=== PATIENT | male | born 1990 | race Caucasian/White ===

== ENCOUNTER 2021-12-22 13:19 | Outpatient (REF) | payer OTHER, SELFPAY ==
--- NOTE | ~2021-12-22 | XR_ITS ---
EXAMINATION: XR FOOT, RIGHT CLINICAL INFORMATION: Pain COMPARISON: None TECHNIQUE: AP, lateral, and oblique views of the right foot. FINDINGS: The bones and soft tissues are normal. No fracture. Alignment is anatomic. Joint spaces are maintained. XR/XR foot RT min 3V IMPRESSION: Normal right foot.
== END 2021-12-22 13:20 | disposition home or self-care (01) ==
LOC: HO.HMGCX 13:19
PROVIDERS: PCP Internal Medicine
DX: M79.671 Pain in right foot (principal)
CPT/HCPCS: 73630

== ENCOUNTER 2023-08-02 07:31 | Emergency (ER) | payer OTHER, SELFPAY ==
--- NOTE | ~2023-08-02 | XR_ITS ---
EXAMINATION: XR FINGER, RIGHT CLINICAL INFORMATION: Right thumb laceration. COMPARISON: None available. TECHNIQUE: Two views of the right thumb. PA view of the right hand. FINDINGS: There is normal alignment. No displaced fracture or dislocation. No retained radiopaque foreign body or soft tissue gas. Focal swelling overlying the interphalangeal joint of the thumb likely related to laceration. XR/XR finger RT min 2V IMPRESSION: No acute bony abnormality.
[2023-08-02 07:35] VITALS: BP 150/84; PULSE 85; RESP 16; TEMP 35.9; O2SAT 95; BMI 21.4
[2023-08-02 08:16] VITALS: BP 106/64; PULSE 78; RESP 18; TEMP 36.8; O2SAT 94
--- NOTE | 2023-08-02 09:32 | ED.SKABFB ---
HPI - Skin/Abscess/Foreign Bdy General Chief complaint: Skin/Abscess/Foreign Body Stated complaint: cut finger, work inj Time Seen by Provider: 08/02/23 09:29 Source: patient Mode of arrival: ambulatory Limitations: no limitations History of Present Illness HPI narrative: Patient is a 33-year-old male Right-hand dominant who presents emergency department for evaluation of a laceration over the dorsal left thumb interphalangeal joint. Etiology of laceration is not entirely clear, believes it may have been from metal or a blade and boxes that he was putting away while at work. The thumb is held in extension, has decreased flexion, localized pain to the site. Unaware of the date of his last tetanus vaccination. Related Data Previous Rx's ?Medication ?Instructions ?Recorded cephalexin 500 mg capsule 500 mg PO QID #27 caps 08/02/23 Allergies Allergy/AdvReac Type Severity Reaction Status Date / Time No Known Allergies Allergy Verified 08/02/23 07:36 [No Known Allergies*] Review of Systems Review of Systems: Yes all other systems are reviewed and are negative [facility] Past Medical History Attestation statement: The following information was validated with the patient. Source: old records reviewed Medical History Right foot pain Social History Social History Advance Directives: No Advance Directives Information Provided: No Physical Exam Vital Signs: Vital Signs: Last Vital Signs Temp 97.8 F 08/02/23 11:12 Pulse 89 08/02/23 11:12 Resp 18 08/02/23 11:12 BP 120/73 08/02/23 11:12 Pulse Ox 93 08/02/23 11:12 O2 Del Method Room Air 08/02/23 11:12 BMI result Body Mass Index 21.4 Appearance: Alert.?Oriented to person, place and time. No acute distress.?Normal affect. Neck: Normal inspection.? Neck supple.?? CVS: Heart sounds normal. Normal heart rate and rhythm.? Pulses normal.?? Respiratory: No respiratory distress.? Lung sounds clear to auscultation bilaterally??? Skin: Skin warm and dry.? Normal skin color.? dorsal right thumb interphalangeal joint 1 cm linear laceration edges well approximated, Tendon visualized Extremities: No lower extremity edema.? Neuro: Moves all extremities spontaneously. Sensation intact bilaterally. Ambulates with normal steady gait. Medications Administered Discontinued Medications Generic Name Dose Route Start Last Admin Trade Name Markus PRN Reason Stop Dose Admin Bacitracin 1 appl 08/02/23 12:04 08/02/23 12:14 Bacitracin Oint 0.9 Gm Packet TOPICAL 08/02/23 12:05 1 appl ONCE ONE Administration Protocol Cephalexin HCl 500 mg 08/02/23 11:39 08/02/23 12:14 Cephalexin 500 Mg Capsule PO 08/02/23 11:40 500 mg ONCE ONE Administration Diphtheria/Tetanus/Acell Pertussis 0.5 ml 08/02/23 09:40 08/02/23 10:49 Diphth,Pertus(Acell),Tet Adult 0.5 Ml Syringe IM 08/02/23 09:41 0.5 ml .ONCE ONE Administration Lidocaine HCl 5 ml 08/02/23 11:27 08/02/23 11:31 Lidocaine Hcl 1 % Mpf 5 Ml Vial INFILTRATI 08/02/23 11:28 5 ml ONCE ONE Administration Medical Decision Making Medical Decision Making MDM Narrative: Patient is a 33-year-old male who presents emergency department for evaluation accidental laceration to the right per HPI and physical exam portion note was irrigated extensively with normal saline. Tendon was visualized on examination, he is able to flex and extend the distal tip of the thumb against resistance. Will refer to hand specialist for follow-up. laceration repaired as per procedural portion of this note. Received initial dose of antibiotics in the emergency department, sent remaining prescription to pharmacy. Tdap was updated. XR is without evidence of retained foreign body or acute osseous abnormality. Discussed worrisome signs and symptoms that would warrant re-evaluation in the emergency department. All questions answered. Stable for discharge. Differential Diagnosis Differential Diagnoses: The differential diagnosis associated with the presentation includes ( Laceration, tendon laceration, fracture, dislocation) Admission/Observation Consideration of admission/observation: Escalation of care including admission/observation considered Independent Interpretation I performed an independent interpretation of an: Plain X-Ray ( no acute fracture) Radiology Impression Discussion of test interpretation with radiology: I have reviewed the radiologist's reading. Radiologist Impression: XR/XR finger RT min 2V IMPRESSION: No acute bony abnormality. Prescription Management I considered prescription management with: Pain Medication ( acetaminophen/ibuprofen) and Antibiotic Procedures Laceration Laceration 1: Site: other (Thumb) Side (If applicable): right Size (cm): 2 Description: linear Depth: simple, single layer Local Anesthetic: lidocaine 1% Amount of anesthesia used (mL): 4 Pre-repair: wound explored Skin layer closed with: nylon Size (cm): 5-0 Number of sutures: 4 Technique: simple, interrupted Discharge Plan Discharge Clinical Impression: Laceration of finger Patient Disposition: Home, Self-Care Instructions: Finger Laceration (ED) Additional Instructions: Complete the entire course of antibiotics as prescribed. You can take ibuprofen 200 mg, 3 tablets (600mg) every 6-8 hours as needed for pain, in addition to Tylenol 500 mg, 2 tablets (1,000mg) every 4-6 hours as needed for pain, but not to exceed 3 doses daily (3,000mg).? Stitches will need to be removed in 10-14 days. You may follow-up with your primary care provider or return back to emergency department for removal. I am giving your referral to Orthopedics as a tendon was visualized during your physical exam, please call today to make an appointment. Prescriptions: New cephalexin 500 mg capsule 500 mg PO QID Qty: 27 0RF Referrals: [facility] [Provider Group] Physician,None [Primary Care Provider] - Stand Alone Forms: Work/School Release Interventions: ED Discharge Assessment Last Done: 08/02/23 12:34 Print Language: Estonian
[2023-08-02] MEDS: Diphth,Pertus(ACell),Tet Adult 0.5 ML SYRINGE IM (10:49)
[2023-08-02 11:12] VITALS: BP 120/73; PULSE 89; RESP 18; TEMP 36.6; O2SAT 93
[2023-08-02] MEDS: Lidocaine HCl 1 % MPF 5 ML VIAL INFILTRATI (11:31)
[2023-08-02] MEDS: cephALEXin 500 MG CAPSULE PO (12:14)
[2023-08-02] MEDS: Bacitracin Oint 0.9 GM PACKET 1 APPL TOPICAL (12:14)
[2023-08-02 12:34] VITALS: BP 120/73; PULSE 89; RESP 18; TEMP 36.6; O2SAT 93
== END 2023-08-02 12:37 | disposition home or self-care (01) ==
PROVIDERS: Emergency Provider Emergency Medicine Emergency Medical Services
DX: S61.012A Laceration without foreign body of left thumb without damage to nail, initial encounter (principal); W26.9XXA Contact with unspecified sharp object(s), initial encounter; Y93.89 Activity, other specified; Y92.89 Other specified places as the place of occurrence of the external cause; Y99.0 Civilian activity done for income or pay; Z23 Encounter for immunization
CPT/HCPCS: 12001; 73140; 90471; 90715; 99283; 99284

== ENCOUNTER 2023-08-12 13:34 | Outpatient (AMB) | payer OTHER, SELFPAY ==
--- NOTE | 2023-08-12 13:44 | MHC.OFFVIS ---
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 Patient reports he was .He states that he is feeling well, no pain or discomfort. Denies numbness and tingling. 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 Patient presented to the ED on 08/02/2023 status post injuring his right thumb with possibly metal or a blade and boxes while at work. Four sutures were applied. He was prescribed cephalexin 500 mg PO QID. While in the office today the patient reports he is doing well with no pain or discomfort. He denies numbness or tingling. [facility] Medical History Right foot pain Social History (Updated 08/12/23 @ 13:48 by Deborah Elliott) Alcohol intake: never Patient Tobacco Use Status: Current everyday Tobacco user Current occupational status: employed Current occupation: powder coating/ right hand dominant Review of Systems Const All systems reviewed & are unremarkable except as noted in HPI and below Physical Exam Vital Signs: BMI result Body Mass Index 21.3 Const General: cooperative and no acute distress Orientation/consciousness: patient oriented x3 Resp Effort & Inspection: normal respiratory effort and able to speak in complete sentences Cardio Peripheral pulses: Peripheral pulses 2+ throughout Skin General skin exam: no rashes or lesions noted Neuro General: patient oriented x3 Extrem Other: Right thumb: Laceration on the dorsal aspect of the right thumb over the IP joint is clean, dry, and intact. Sutures intact. No surrounding erythema or drainage. No signs of infection. Able to fully flex and extend. Sensation intact. Capillary refill is brisk. Assessment & Plan Assessment & Plan (1) Laceration of right thumb: Code(s): S61.011A - Laceration without foreign body of right thumb without damage to nail, initial encounter Category: Medical Qualifiers: Damage to nail status: unspecified Encounter type: initial encounter Foreign body presence: unspecified Qualified Code(s): S61.011A - Laceration without foreign body of right thumb without damage to nail, initial encounter Plan Mr. Tyler is a 33-year-old right hand dominant male who presents in the office today, as a new patient, for an evaluation of a laceration on the dorsal aspect of the right thumb. Patient presented to the ED on 08/02/2023 status post injuring his right thumb with possibly metal or a blade and boxes while at work. Four sutures were applied. He was prescribed cephalexin 500 mg PO QID. While in the office today the patient reports he is doing well with no pain or discomfort. He denies numbness or tingling. Sutures were removed and steri-stripes were applied. Patient confirms completion of the cephalexin 500 mg PO QID with no increase in pain, redness, or signs of infection. He was educated on signs of infection, which are as follows but not limited to erythema, edema, drainage, or warmth. If he is to experience any of these symptoms, he must contact the office immediately or present to the ED. Follow-up will be PRN, or sooner if needed. X-rays of the right hand, obtained on 08/02/2023, revealed: No acute bony abnormality. Patient Instructions: Scribed by Matilda Florentino medical geneticist, for Tejal Villeda PA-C on 08/12/2023 at 2:05 pm, EST. Coding Level of Care Code New Pt Level 4 (57475) Diagnoses Laceration of right thumb, foreign body presence unspecified, nail damage status unspecified, initial encounter S61.011A Damage to nail status: unspecified Encounter type: initial encounter Foreign body presence: unspecified
[2023-08-12 13:49] VITALS: BMI 21.3
== END 2023-08-12 13:57 | disposition home or self-care (01) ==
PROVIDERS: Visit Provider Physician Assistant
DX: S61.011A Laceration without foreign body of right thumb without damage to nail, initial encounter (principal)
CPT/HCPCS: 99203

== ENCOUNTER → 2023-08-12 13:34 | Outpatient (BNVA) | payer OTHER, SELFPAY | PROVIDERS: Visit Provider Physician Assistant ==

== ENCOUNTER → 2024-09-14 12:22 | Outpatient (BNVA) | payer OTHER, SELFPAY | PROVIDERS: Visit Provider Physician Assistant Medical | DX: S81.812A Laceration without foreign body, left lower leg, initial encounter (principal); W26.9XXA Contact with unspecified sharp object(s), initial encounter | CPT/HCPCS: 12001; 99203 ==

== ENCOUNTER → 2024-09-16 09:00 | Outpatient (BNVA) | payer OTHER, SELFPAY | PROVIDERS: Visit Provider Physician Assistant | DX: S81.812A Laceration without foreign body, left lower leg, initial encounter (principal); W26.9XXA Contact with unspecified sharp object(s), initial encounter | CPT/HCPCS: 99213 ==

== ENCOUNTER → 2024-09-22 08:54 | Outpatient (BNVA) | payer OTHER, SELFPAY | PROVIDERS: Visit Provider Physician Assistant Medical | DX: S81.812A Laceration without foreign body, left lower leg, initial encounter (principal); W26.9XXA Contact with unspecified sharp object(s), initial encounter; Z48.02 Encounter for removal of sutures | CPT/HCPCS: 99212; 99213 ==

== ENCOUNTER → 2024-09-24 10:16 | Outpatient (BNVA) | payer OTHER, SELFPAY | PROVIDERS: Visit Provider Physician Assistant Medical | DX: S81.812A Laceration without foreign body, left lower leg, initial encounter (principal); W26.9XXA Contact with unspecified sharp object(s), initial encounter | CPT/HCPCS: 99213 ==

== ENCOUNTER → 2024-09-29 12:03 | Outpatient (BNVA) | payer OTHER, SELFPAY | PROVIDERS: Visit Provider Physician Assistant Medical | DX: S81.812A Laceration without foreign body, left lower leg, initial encounter (principal); W26.9XXA Contact with unspecified sharp object(s), initial encounter; Z48.02 Encounter for removal of sutures; Z02.79 Encounter for issue of other medical certificate | CPT/HCPCS: 99213 ==